=== PATIENT | male | born 1965 | race African-American/Black ===

== ENCOUNTER 2018-12-31 16:49 | Emergency (ER) | payer MEDICAID ==
[~2018-12-31] VITALS: Ht 175.3 cm; Wt 82.0 kg
[2018-12-31 16:53] VITALS: BP 146/97
== END 2018-12-31 22:47 | disposition left against medical advice (07) ==
LOC: ER 18:01
DX: R68.84 Jaw pain (principal); Z53.21 Procedure and treatment not carried out due to patient leaving prior to being seen by health care provider
CPT/HCPCS: 93005